=== PATIENT | female | born 1960 | race Caucasian/White ===

== ENCOUNTER 2022-05-13 09:11 | Emergency (ER) | payer BC, OTHER, SELFPAY ==
[2022-05-13 09:22] VITALS: BP 130/96; PULSE 95
[2022-05-13] MEDS ORDERED: Ketorolac 30 MG/ML SDV IM ONE (09:55)
[2022-05-13 10:37] LABS: ESTIMATED GFR 73 mL/min (>60); TROPONIN I HIGH SENSITIVITY 13.2 pg/mL (<=60.3)
== END 2022-05-13 11:09 | disposition home or self-care (01) ==
LOC: JP.ED 09:11
DX: U07.1 COVID-19 (principal); R07.89 Other chest pain; Z88.2 Allergy status to sulfonamides; Z88.8 Allergy status to other drugs, medicaments and biological substances; Z87.891 Personal history of nicotine dependence
CPT/HCPCS: 36415; 80053; 83690; 84484; 85025; 93005; 96372; 99285; J1885; 93010; 99282

== ENCOUNTER 2022-09-24 19:41 | Emergency (ER) | payer BC ==
[2022-09-24 19:56] VITALS: BP 150/85; PULSE 73
[2022-09-24] MEDS ORDERED: Sodium Chloride 0.9% 10 ML Syringe FLUSH PRN (20:10)
[2022-09-24 20:32] LABS: BASOPHILS ABSOLUTE AUTO 0.03 K/uL (0.00-0.10); BASOPHILS PERCENT AUTO 0.4 % (0.1-1.3); EOSINOPHILS ABSOLUTE AUTO 0.14 K/uL (0.00-0.40); EOSINOPHILS PERCENT AUTO 1.8 % (0.0-5.4); HEMATOCRIT 40.9 % (34.3-46.0); HEMOGLOBIN 13.5 g/dL (11.2-15.5); IMMATURE GRAN PERCENT AUTO 0.1 % (0.0-0.7); LYMPHOCYTES ABSOLUTE AUTO 2.42 K/uL (0.8-3.3); LYMPHOCYTES PERCENT AUTO 30.9 % (11.4-47.7); MEAN CORPUSCULAR HEMOGLOBIN 28.5 pg (31.6-35.5); MEAN CORPUSCULAR VOLUME 86.3 fL (81.4-99.0); MONOCYTES ABSOLUTE AUTO 0.54 K/uL (0.20-0.90); MONOCYTES PERCENT AUTO 6.9 % (3.3-12.6); NEUTROPHILS PERCENT AUTO 59.9 % (40.0-78.1); PLATELET COUNT,PLT 264 K/uL (130-375); RED BLOOD CELL COUNT 4.74 M/uL (3.77-5.24); WHITE BLOOD CELL COUNT,WBC 7.8 K/uL (3.2-11.0)
[2022-09-24 20:37] LABS: IMMATURE GRAN ABSOLUTE AUTO 0.01 K/uL (0.00-0.23)
[2022-09-24 20:53] LABS: ALANINE AMINOTRANSFERASE,ALT 42 U/L (12-78); ALBUMIN 3.4 g/dL (3.4-5.0); ALKALINE PHOSPHATASE 85 U/L (46-116); ANION GAP 6.1 mmol/L (5.0-14.0); ASPARTATE AMNIOTRANSFERASE,AST 25 U/L (15-37); BILIRUBIN TOTAL 0.3 mg/dL (0.2-1.0); BLOOD UREA NITROGEN,BUN 21 mg/dL (7-18); C-REACTIVE PROTEIN 0.29 mg/dL (0.0-0.3); CALCIUM 8.8 mg/dL (8.5-10.1); CARBON DIOXIDE,CO2 32 mmol/L (21-32); CHLORIDE,CL 103 mmol/L (100-108); CREATININE 0.8 mg/dL (0.6-1.0); EST CRCL DRUG DOSING (CG) 85.22 mL/min; ESTIMATED GFR 84 mL/min (>60); GLUCOSE RANDOM 110 mg/dL (74-106); POTASSIUM,K 3.9 mmol/L (3.6-5.2); PROTEIN TOTAL,TP 6.9 g/dL (6.4-8.2); SODIUM,NA 141 mmol/L (140-148)
[2022-09-24] MEDS ORDERED: Iopamidol 612 MG/ML 100 ML Bottle IV SCH (21:15)
[2022-09-24] MEDS ORDERED: Sodium Chloride 0.9% 50 ML IV SCH (21:15)
[2022-09-24] MEDS ORDERED: predniSONE 10 MG Tab PO ONE (22:08)
== END 2022-09-24 22:46 | disposition home or self-care (01) ==
LOC: JP.ED 19:41
DX: K65.4 Sclerosing mesenteritis (principal); Z88.2 Allergy status to sulfonamides; Z88.8 Allergy status to other drugs, medicaments and biological substances
CPT/HCPCS: 36415; 74177; 80053; 85025; 86140; 99284; J3490; J7512; Q9967

== ENCOUNTER 2023-03-25 06:04 | Day surgery (SDC) | payer OTHER ==
[2023-03-25 06:30] LABS: HEMATOCRIT 43.8 % (34.3-46.0); HEMOGLOBIN 14.7 g/dL (11.2-15.5); MEAN CORPUSCULAR HEMOGLOBIN 28.8 pg (31.6-35.5); MEAN CORPUSCULAR HGB CONC 33.6 g/dL (31.6-35.5); MEAN CORPUSCULAR VOLUME 85.7 fL (81.4-99.0); RED BLOOD CELL COUNT 5.11 M/uL (3.77-5.24); WHITE BLOOD CELL COUNT,WBC 7.3 K/uL (3.2-11.0)
[2023-03-25] MEDS: Nozin Nasal Sanitizer NASBOTH ONE (06:46)
[2023-03-25 06:51] LABS: A/G RATIO 0.9 (1.2-2.2); ALANINE AMINOTRANSFERASE,ALT 44 U/L (12-78); ALBUMIN 3.5 g/dL (3.4-5.0); ALKALINE PHOSPHATASE 88 U/L (46-116); ASPARTATE AMNIOTRANSFERASE,AST 26 U/L (15-37); BILIRUBIN TOTAL 0.5 mg/dL (0.2-1.0); BLOOD UREA NITROGEN,BUN 16 mg/dL (7-18); CALCIUM 8.8 mg/dL (8.5-10.1); CARBON DIOXIDE,CO2 30 mmol/L (21-32); CHLORIDE,CL 99 mmol/L (100-108); CREATININE 0.9 mg/dL (0.6-1.0); EST CRCL DRUG DOSING (CG) 75.75 mL/min; ESTIMATED GFR 73 mL/min (>60); GLUCOSE RANDOM 112 mg/dL (74-106); POTASSIUM,K 4.1 mmol/L (3.6-5.2); PROTEIN TOTAL,TP 7.3 g/dL (6.4-8.2); SODIUM,NA 137 mmol/L (140-148)
[2023-03-25 06:53] LABS: ANION GAP 12.1 mmol/L (5.0-14.0)
[2023-03-25] MEDS ORDERED: fentaNYL 250 MCG/5 ML SDV ONE (07:17)
[2023-03-25] MEDS ORDERED: Midazolam 1 MG/ML 2 ML SDV ONE (07:18)
[2023-03-25] MEDS ORDERED: Ondansetron 4 MG/2 ML SDV ONE (07:18)
[2023-03-25] MEDS ORDERED: Propofol 200 MG/20 ML SDV ONE (07:18)
[2023-03-25] MEDS ORDERED: Dexamethasone 4 MG/ML SDV ONE (07:18)
[2023-03-25] MEDS ORDERED: Bupivacaine 0.5% 30 ML SDV ONE (07:20)
[2023-03-25] MEDS: Lactated Ringers 1,000 ML IV SCH (07:20)
[2023-03-25] MEDS: ceFAZolin 2 GM in Premix Bag 1 BAG IV ONE (07:58)
[2023-03-25] MEDS: Acetaminophen/oxyCODONE 325-5 MG Tab PO PRN (11:34)
[2023-03-25 12:02] VITALS: BP 144/79; PULSE 72
== END 2023-03-25 12:40 | disposition home or self-care (01) ==
LOC: JP.SDS 06:04
PROVIDERS: ATTEND Specialist
DX: M75.111 Incomplete rotator cuff tear or rupture of right shoulder, not specified as traumatic (principal); M75.41 Impingement syndrome of right shoulder; M19.011 Primary osteoarthritis, right shoulder; J45.909 Unspecified asthma, uncomplicated; K21.9 Gastro-esophageal reflux disease without esophagitis; E66.9 Obesity, unspecified
CPT/HCPCS: 29826; 29827; 36415; 80053; 85027; 93005; 93010; A9270; C1713; J0665; J0690; J1100; J2250; J2405; J2704; J3010; J7120

== ENCOUNTER 2023-05-25 07:58 | Emergency (ER) | payer OTHER ==
[2023-05-25] MEDS ORDERED: Morphine 4 MG/ML Syringe IVPUSH PRN (08:31)
[2023-05-25 08:37] LABS: BASOPHILS ABSOLUTE AUTO 0.03 K/uL (0.00-0.10); BASOPHILS PERCENT AUTO 0.5 % (0.1-1.3); EOSINOPHILS ABSOLUTE AUTO 0.09 K/uL (0.00-0.40); EOSINOPHILS PERCENT AUTO 1.4 % (0.0-5.4); HEMOGLOBIN 14.3 g/dL (11.2-15.5); IMMATURE GRAN ABSOLUTE AUTO 0.02 K/uL (0.00-0.23); IMMATURE GRAN PERCENT AUTO 0.3 % (0.0-0.7); LYMPHOCYTES ABSOLUTE AUTO 2.02 K/uL (0.8-3.3); LYMPHOCYTES PERCENT AUTO 30.4 % (11.4-47.7); MEAN CORPUSCULAR HEMOGLOBIN 28.6 pg (31.6-35.5); MEAN CORPUSCULAR HGB CONC 33.3 g/dL (31.6-35.5); MONOCYTES ABSOLUTE AUTO 0.49 K/uL (0.20-0.90); MONOCYTES PERCENT AUTO 7.4 % (3.3-12.6); PLATELET COUNT,PLT 296 K/uL (130-375); WHITE BLOOD CELL COUNT,WBC 6.7 K/uL (3.2-11.0)
[2023-05-25] MEDS: Aspirin 81 MG Tab.Chew PO ONE (08:47)
[2023-05-25] MEDS: Nitroglycerin 0.4 MG Tab.SL SL PRN (08:48)
[2023-05-25] MEDS: Sodium Chloride 0.9% 10 ML Syringe FLUSH PRN (08:49)
[2023-05-25 08:59] LABS: A/G RATIO 0.9 (1.2-2.2); ALANINE AMINOTRANSFERASE,ALT 55 U/L (12-78); ALBUMIN 3.6 g/dL (3.4-5.0); ALKALINE PHOSPHATASE 114 U/L (46-116); ANION GAP 11.9 mmol/L (5.0-14.0); ASPARTATE AMNIOTRANSFERASE,AST 30 U/L (15-37); BILIRUBIN TOTAL 0.5 mg/dL (0.2-1.0); BLOOD UREA NITROGEN,BUN 20 mg/dL (7-18); CALCIUM 9.4 mg/dL (8.5-10.1); CARBON DIOXIDE,CO2 27 mmol/L (21-32); CHLORIDE,CL 102 mmol/L (100-108); CREATININE 0.9 mg/dL (0.6-1.0); EST CRCL DRUG DOSING (CG) 75.75 mL/min; ESTIMATED GFR 73 mL/min (>60); GLUCOSE RANDOM 118 mg/dL (74-106); PRO B-TYPE NATRIUR PEPT,BNPPRO 36 pg/mL (5-125); PROTEIN TOTAL,TP 7.7 g/dL (6.4-8.2); SODIUM,NA 141 mmol/L (140-148); TROPONIN I HIGH SENSITIVITY 12.2 pg/mL (<=60.3)
[2023-05-25 09:10] VITALS: BP 128/79; PULSE 66
[2023-05-25] MEDS: Ketorolac 30 MG/ML SDV IVPUSH ONE (10:06)
== END 2023-05-25 10:58 | disposition home or self-care (01) ==
LOC: JP.ED 07:58
DX: R07.89 Other chest pain (principal); E66.9 Obesity, unspecified; Z88.2 Allergy status to sulfonamides; Z88.8 Allergy status to other drugs, medicaments and biological substances; Z86.16 Personal history of COVID-19; Z90.710 Acquired absence of both cervix and uterus; Z90.49 Acquired absence of other specified parts of digestive tract; Z79.51 Long term (current) use of inhaled steroids; Z87.891 Personal history of nicotine dependence; Z68.32 Body mass index [BMI] 32.0-32.9, adult
CPT/HCPCS: 36415; 71045; 80053; 83880; 84484; 85025; 93005; 96374; 99285; A9270; J1885; J3490; 93010; 99283

== ENCOUNTER 2024-09-10 06:47 | Emergency (ER) | payer BC ==
[2024-09-10 07:14] VITALS: BP 150/90; PULSE 90
[2024-09-10 07:27] LABS: APPEARANCE,URINE TURBID (CLEAR); GLUCOSE,URINE NEGATIVE (NEGATIVE); OCCULT BLOOD,URINE LARGE (NEGATIVE)
[2024-09-10 07:30] LABS: SQUAMOUS EPITHELIAL CELLS,UR NOT SEEN /HPF; UROTHELIAL CELLS,URINE NOT SEEN /HPF
== END 2024-09-10 07:46 | disposition home or self-care (01) ==
LOC: JP.ED 06:47
DX: N39.0 Urinary tract infection, site not specified (principal); R31.9 Hematuria, unspecified; Z86.16 Personal history of COVID-19; Z90.49 Acquired absence of other specified parts of digestive tract; Z90.710 Acquired absence of both cervix and uterus; Z88.2 Allergy status to sulfonamides; Z88.8 Allergy status to other drugs, medicaments and biological substances; Z79.51 Long term (current) use of inhaled steroids; Z79.899 Other long term (current) drug therapy
CPT/HCPCS: 81001; 99283